=== PATIENT | female | born 1960 | race African-American/Black ===

== ENCOUNTER 2021-12-31 12:09 | Emergency (ER) | payer OTHER, SELFPAY ==
--- NOTE | ~2021-12-31 | XR_ITS ---
EXAMINATION: XR foot LT min 3V DATE: 12/31/2021 13:23 INDICATION: Left foot pain and swelling. Gout. TECHNIQUE: Dorsoplantar, two oblique and lateral views of the left foot were obtained. COMPARISON: None. FINDINGS: Bone alignment is normal. No fracture. Minimal to mild polyarticular osteoarthritis characterized by mild nonuniform joint space narrowing and/or small marginal osteophytes at at multiple joints in the fore, mid and hindfoot. Irregular contour to the dorsal/proximal margin of the navicular likely relat ed to an os supra naviculare. Small plantar calcaneal spur. No erosions to suggest inflammatory arthr itis including gout. Soft tissue swelling about the dorsum of the forefoot and medial aspect of the m idfoot. IMPRESSION: 1. No acute osseous abnormality or erosions to suggest an inflammatory arthritis including gout. 2. 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 Reviewed, dictated and finalized at location A. IMPRESSION: 1. No acute osseous abnormality or erosions to suggest an inflammatory arthriti s including gout. 2. 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
[2021-12-31 12:13] VITALS: BP 104/76; PULSE 111; RESP 16; TEMP 36.6; O2SAT 99
--- NOTE | 2021-12-31 14:06 | PC.NURSE ---
[employer] provided patient with crutch training and patient demonstrated proper use of crutches.
--- NOTE | 2021-12-31 14:07 | ED.EXTPRO ---
HPI - Extremity Problem General Chief complaint: Extremity Problem,Nontraumatic Stated complaint: L foot pain, ?gout Time Seen by Provider: 12/31/21 12:24 History of Present Illness HPI Narrative: Patient is a 61-year-old female who presents ER with left foot pain. Began 5 days ago. Worsening each day. No redness but does have swelling of midfoot. No trauma. Has history of gout and this feels similar. Patient has been taking Tylenol without improvement. No fevers or chills or sweats. Related Data Allergies Allergy/AdvReac Type Severity Reaction Status Date / Time No Known Allergies Allergy Unverified 06/13/17 00:26 Review of Systems Review of Systems: All systems reviewed & are unremarkable except as noted in HPI and below Constitutional: Constitutional: Denies chills and Denies fever(s) Musculoskeletal: Musculoskeletal: Reports arthralgias, Reports joint swelling and Denies muscle cramps Integumentary/Breasts: Skin/Breast: Denies erythema, Denies rash and Denies skin ulcer Neurologic: Denies numbness and Denies weakness PMFSH Past Medical History Medical History (Updated 12/31/21 @ 14:13 by Byron Rothman MD) Anxiety Depression Gout Hypertension Surgical History Surgical History (Updated 12/31/21 @ 14:10 by Byron Rothman MD) No pertinent past surgical history Exam Narrative: GENERAL: Well-appearing, well-nourished, and in no acute distress. HEAD: Normocephalic, atraumatic. HEART: Regular rate and rhythm. Normal peripheral pulses. ABDOMEN: Soft, nontender, nondistended EXTREMITIES: Mild edema of the midfoot on the left side when compared to the right. No redness. Normal range of motion of the toes and ankle without pain. Normal posterior tibial and dorsalis pedis pulses. SKIN: Warm, dry, no rash. NEURO: No focal deficits. Alert and oriented x3. PSYCH: Normal mood and affect. Course Course Emergency Course: Crutches to help with walking as she reports difficulty. We will also start her on prednisone Vital Signs Vital signs: Vital Signs Temperature 97.9 F 12/31/21 12:13 Pulse Rate 111 H 12/31/21 12:13 Respiratory Rate 16 12/31/21 12:13 Blood Pressure 104/76 12/31/21 12:13 Pulse Oximetry 99 12/31/21 12:13 Temperature 97.9 F 12/31/21 12:13 Pulse Rate 111 H 12/31/21 12:13 Respiratory Rate 16 12/31/21 12:13 Blood Pressure 104/76 12/31/21 12:13 Pulse Oximetry 99 12/31/21 12:13 MDM - Extremity (Nontraumatic) Imaging Data Radiologist's impression: ITS Impressions Foot X-Ray 12/31/21 13:30 IMPRESSION: 1. No acute osseous abnormality or erosions to suggest an inflammatory arthritis including gout. 2. 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 Discharge Plan Discharge Clinical Impression: Gout flare Patient Disposition: Home, Self-Care Condition: Stable Instructions: Crutch Instructions (ED), Gout (ED) Additional Instructions: Return the ER if you have fever 100.4 ?F, you cannot keep down food or water, you lose consciousness, you have additional concerns. Prescriptions: New prednisone 20 mg tablet 40 mg PO DAILY 7 Days Qty: 14 0RF Follow-up/Referrals: Ros,Sundeep Wood MD [Primary Care Provider] - 1 Week
[2021-12-31] MEDS: IBUPROFEN 600 MG TABLET PO (14:27)
== END 2021-12-31 14:30 | disposition home or self-care (01) ==
PROVIDERS: Emergency Provider Emergency Medicine; PCP Family Medicine
DX: M10.9 Gout, unspecified (principal); M19.072 Primary osteoarthritis, left ankle and foot; I10 Essential (primary) hypertension
CPT/HCPCS: 73630; 99283; A9270

== ENCOUNTER 2022-03-14 23:42 | Emergency (ER) | payer OTHER, SELFPAY ==
[2022-03-15 00:03] VITALS: BP 124/70; PULSE 99; RESP 18; TEMP 36.6; O2SAT 100
[2022-03-15 02:44] VITALS: BP 99/61; PULSE 101; RESP 16; O2SAT 99
--- NOTE | 2022-03-15 03:30 | ED.GENADULT ---
HPI - General Adult General Chief complaint: Fall Stated complaint: fall 2 wks ago. back & leg pain Time Seen by Provider: 03/15/22 02:54 History of Present Illness HPI narrative: This is a pleasant 61-year-old female presented to ED with lower back pain and shoulder pain. The patient had a fall approximately 2 weeks ago. After the fall she was fine and was able to function normally. However over the next several days she had progressively worse muscular pain. Her pain is predominantly in the right trapezius. She also has pain in the right paralumbar muscles that radiates down the back of her leg. She denies any fever chills. She denies history of IV drug abuse, cancer, urinary difficulty or loss of bowel continence. She does not have saddle anesthesia. Patient has been taking motrin with some relief. Related Data Home Medications Medication Instructions Recorded Confirmed allopurinol 100 mg tablet mg 03/15/22 fluoxetine 40 mg capsule mg 03/15/22 lisinopril 20 tablet 03/15/22 mg-hydrochlorothiazide 12.5 mg tablet Allergies Allergy/AdvReac Type Severity Reaction Status Date / Time No Known Allergies Allergy Unverified 03/15/22 02:49 Review of Systems Review of Systems: CONSTITUTIONAL: Denies night sweats. EYES: No eye pain ENT: Denies rhinorrhea CARDIOVASCULAR: Denies palpitations RESPIRATORY: Denies hemoptysis GASTROINTESTINAL: Denies hematemesis GENITOURINARY: Denies hematuria. SKIN: Denies rash MUSCULOSKELETAL: Denies myalgia. NEUROLOGIC: Denies weakness. PSYCHIATRIC: Denies delusions PMFSH Past Medical History Medical History Anxiety Depression Gout Hypertension Surgical History Surgical History No pertinent past surgical history Exam Narrative: APPEARANCE: No apparent distress. Patient is very pleasant. She is laughing and smiling during the interview. Head atraumatic. EYES: PERRLA/EOMI, NOSE: Normal no drainage NECK: Supple, Trachea midline RESPIRATORY: CTAB, No increased work of breathing. CARDIOVASCULAR: S1S2 appreciated ABDOMINAL: Soft, nontender, nondistended, MUSCULOSKELETAl: No obvious deformities. Patient has point tenderness over the right trapezius muscle. She also has Tenderness over the right paralumbar region. Straight leg is positive on the right. Negative on the left. neuro: Cranial nerves 2-12 grossly intact. Sensation light touch, motor function cerebellar function intact for 4 extremities. Gait exam was normal. SKIN:: Warm, dry. Normal color PSYCHIATRIC: Normal affect Course Vital Signs Vital signs: Vital Signs Temperature 97.8 F 03/15/22 00:03 Pulse Rate 99 03/15/22 00:03 Respiratory Rate 18 03/15/22 00:03 Blood Pressure 124/70 03/15/22 00:03 Pulse Oximetry 100 03/15/22 00:03 Oxygen Delivery Room Air 03/15/22 00:03 Temperature 97.8 F 03/15/22 00:03 Pulse Rate 101 H 03/15/22 02:44 Respiratory Rate 16 03/15/22 02:44 Blood Pressure 99/61 L 03/15/22 02:44 Pulse Oximetry 99 03/15/22 02:44 Oxygen Delivery Room Air 03/15/22 00:03 Medical Decision Making MDM Narrative Medical decision making narrative: This is a 61-year-old woman presenting to ED with shoulder and back pain. She had a remote fall 2 weeks ago and was fully functional after the fall. However the following day she began to get more more sore has been having progressively worse muscle pain. She has no concerning findings in her history or physical.She has taken Motrin with no relief. She will be given a shot of Toradol. She was given [place] and Robaxin p.o. A lidocaine patch was placed. Patient's pain improved and she was able to ambulate without difficulty. Patient will be discharged home with instructions to follow up with her primary care physician Dr. Sommer on her regularly scheduled appointment next Monday. Vi
[2022-03-15] MEDS: HYDROcodone/acetaminophen (*CRX) 5-325 MG TABLET 2 TAB PO (03:37)
[2022-03-15] MEDS: KETOROLAC 30 MG/ML VIAL (*BKC) 15 MG IM (03:37)
[2022-03-15] MEDS: methocarbamoL 750 MG TABLET PO (03:42)
[2022-03-15] MEDS: LIDOCAINE 5% PATCH 1 PATCH TRANSDERM (03:42)
[2022-03-15 03:57] VITALS: BP 104/68; PULSE 96; RESP 16; O2SAT 98
== END 2022-03-15 04:02 | disposition home or self-care (01) ==
PROVIDERS: Emergency Provider Emergency Medicine; PCP Family Medicine
DX: M54.41 Lumbago with sciatica, right side (principal); M25.511 Pain in right shoulder; I10 Essential (primary) hypertension; F41.9 Anxiety disorder, unspecified; F32.A Depression, unspecified
CPT/HCPCS: 96372; 99283; A9270; J1885